=== PATIENT | male | born 1970 | race African-American/Black ===

== ENCOUNTER 2020-02-02 12:39 | Emergency (ER) | payer OTHER ==
[~2020-02-02] VITALS: Ht 180.3 cm; Wt 81.7 kg
[2020-02-02 12:41] VITALS: BP 146/104
== END 2020-02-02 13:44 | disposition home or self-care (01) ==
LOC: ER 12:39
DX: T14.8XXA Other injury of unspecified body region, initial encounter (principal); M25.532 Pain in left wrist; M25.512 Pain in left shoulder; F41.9 Anxiety disorder, unspecified; Z79.899 Other long term (current) drug therapy; W50.0XXA Accidental hit or strike by another person, initial encounter; Y93.89 Activity, other specified; Y92.238 Other place in hospital as the place of occurrence of the external cause; Y99.8 Other external cause status

== ENCOUNTER → 2020-02-02 | Emergency (ER) | payer OTHER ==
[~2020-02-02] VITALS: Ht 182.9 cm; Wt 84.8 kg
[~2020-02-02] MED LIST: CLONAZEPAM 0.50.5 M1 PO; IBUPROFEN 800800 M1 PO; LEXAPRO20 MG PO; PAXIL10 MG
[2020-02-02 01:14] VITALS: BP 171/131
== END ==
LOC: ER 01:12
DX: F10.129 Alcohol abuse with intoxication, unspecified (principal); Y90.9 Presence of alcohol in blood, level not specified; R45.6 Violent behavior; F41.9 Anxiety disorder, unspecified

== ENCOUNTER 2020-02-03 12:09 | Emergency (ER) | payer OTHER ==
[~2020-02-03] VITALS: Ht 180.3 cm; Wt 83.9 kg
[2020-02-03 14:22] VITALS: BP 115/80
== END 2020-02-03 14:25 | disposition home or self-care (01) ==
LOC: ER 12:09
DX: F10.920 Alcohol use, unspecified with intoxication, uncomplicated (principal); R52 Pain, unspecified; Z79.899 Other long term (current) drug therapy